=== PATIENT | female | born 1955 | race Caucasian/White ===

== ENCOUNTER 2017-11-29 03:32 | Observation (INO) ==
[2017-11-29 04:39] LABS: Basophils % 0.4 %; Eosinophils # 0.2 K/mcL (0.0-0.6); Eosinophils % 2.8 %; Hematocrit 38.8 % (35.3-44.9); Immature Granulocytes % 0.2 % (0-4); Lymphocytes # 1.9 K/mcL (0.6-4.6); Lymphocytes % 35.7 %; Mean Corpuscular HGB Conc 33.5 g/dL (31.6-35.5); Mean Corpuscular Hemoglobin 29.8 pg (28.0-33.3); Mean Platelet Volume 10.7 fL (9.4-12.4); Monocytes # 0.5 K/mcL (0.0-1.3); Monocytes % 8.7 %; Neutrophils # 2.8 K/mcL (1.6-8.9); Platelet Count 196 K/mcL (140-400); Red Blood Count 4.36 M/mcL (3.82-4.97); Red Cell Distribution Width 12.5 % (11.5-14.5); Segmented Neutrophils % 52.2 %
[2017-11-29 04:45] LABS: INR 1.1; Prothrombin Time 11.6 Seconds (9.4-12.1)
[2017-11-29 04:59] LABS: Alanine Aminotransferase 17 Units/L (7-52); Albumin 4.2 g/dL (3.5-5.7); Albumin/Globulin Ratio 1.8 (1.1-2.2); Alkaline Phosphatase 57 Units/L (34-104); Aspartate Amino Transferase 18 Units/L (13-39); BUN/Creatinine Ratio 15 (6-26); Bilirubin,Total 0.5 mg/dL (0.3-1.0); Blood Urea Nitrogen 15 mg/dL (8-23); Calcium 8.9 mg/dL (8.6-10.3); Carbon Dioxide 30 mEq/L (23-29); Chloride 102 mEq/L (98-107); Globulin 2.3 g/dL (2.4-3.5); Glucose 103 mg/dL (70-105); Magnesium 1.8 mg/dL (1.6-2.6); Osmolality,Calculated 289 (280-300); Potassium 3.7 mEq/L (3.5-5.1); Sodium 139 mEq/L (136-145); Total Protein 6.5 g/dL (6.4-8.9); eGFR For African Americans > 60 (> 60); eGFR For Non-African Americans 57 (> 60)
--- NOTE | 2017-11-29 05:33 | Emergency Department Note ---
Disposition Clinical Impression: Syncope and collapse Chest pain Qualifiers: Chest pain type: unspecified Qualified Code(s): R07.9 - Chest pain, unspecified Disposition: Admitted As Inpatient Condition: Good General Adult HPI - General Chief complaint: ED Syncope Stated complaint: syncope Time Seen by Provider: 11/29/17 04:01 Source: patient, family Limitations: no limitations Nursing Notes Reviewed: Yes Vital Signs Reviewed: Yes - History of Present Illness HPI Narrative: Patient presents today for T emergency department for evaluation of chest pain and syncope. Patient states that she fell asleep early tonight. She woke up at 12:00 to take her medications that she had missed. Nose that she was having left-sided chest pain that she describes as a burning tightness. She states that nothing made it better or worse but it did go away as she tried to lay back down. She then woke up at 3:30 with nausea vomiting and generalized unwell feeling. She was walking to the bedroom where she had complete collapse. She passed out. Patient does not remember the incident. is at bedside. States he was there and it took a while for her to come to. He was afraid that she was . Patient has had mild confusion that has not been improving since this time. Upon my evaluation the patient is alert and oriented 3. Patient does have some mildly slow speech but does not have any other complaints at this time. Pain Scale: 4 - Related Data Home Medications Medication Instructions Recorded Confirmed Atorvastatin [Lipitor] 40 mg PO HS 06/14/16 11/29/17 Cetirizine HCl [Zyrtec] 10 mg PO DAILY 06/14/16 11/29/17 Gabapentin [Neurontin] 600 mg PO QAM 06/14/16 11/29/17 Hydrocodone/Acetaminophen [[place] 1 tab PO Q6H PRN 06/14/16 11/29/17 7.5-325 Tablet] Levothyroxine [Synthroid] 125 mcg PO DAILY 06/14/16 11/29/17 Melatonin 5 mg PO HS 06/14/16 11/29/17 Meloxicam 15 mg PO DAILY 06/14/16 11/29/17 Omeprazole [PriLOSEC] 20 mg PO BIDAC 06/14/16 11/29/17 Tizanidine HCl [Zanaflex] 4 mg PO Q4H PRN 06/14/16 11/29/17 Verapamil HCl [Verapamil ER] 120 mg PO AD PRN 06/14/16 11/29/17 Aspirin [Lo-Dose Aspirin EC] 81 mg PO QAM 11/29/17 11/29/17 Gabapentin [Neurontin] 1,200 mg PO HS 11/29/17 11/29/17 Previous Rx's Medication Instructions Recorded Amitriptyline [Elavil] 25 mg PO HS #30 tablet 11/30/17 Allergies Allergy/AdvReac Type Severity Reaction Status Date / Time mold Allergy Swelling Verified 08/25/17 15:42 of Lip/Tongue/Throat Sulfa (Sulfonamide Allergy Swelling Verified 08/25/17 15:42 Antibiotics) of Lip/Tongue/Throat lactase [From Dairy Aid] AdvReac Abdominal Verified 08/25/17 15:42 Pain prochlorperazine AdvReac Seizure Verified 08/25/17 15:42 [From Compazine] Review of Systems: CONSTITUTIONAL: No weight loss, fever, chills, weakness or fatigue. HEENT: Eyes: No visual changes. Ears, Nose, Throat: No hearing loss, difficulty talking or unable to swallow. SKIN: No rash or itching. CARDIOVASCULAR: Chest pain and syncope RESPIRATORY: No shortness of breath, cough or sputum. GASTROINTESTINAL: No anorexia, nausea, vomiting or diarrhea. No abdominal pain or blood. GENITOURINARY: No burning on urination or hematuria. NEUROLOGICAL: Syncope No headache, dizziness, paralysis, ataxia, numbness or tingling in the extremities. No change in bowel or bladder control. MUSCULOSKELETAL: No muscle pain, back pain, joint pain or stiffness. Past Medical History - Past Medical History Medical history: Reports: hyperlipidemia, hypertension, thyroid disease Surgical history: Reports: hysterectomy, thyroidectomy, other Psychiatric history: Reports: no psych history - Social History Smoking Status: Never smoker Smokeless Tobacco Status: No Alcohol use: Reports: none Drug use: Reports: none Physical Exam General appearance: NAD, conversant Eyes: anicteric sclerae, moist conjunctivae; PERRL HENT: Atraumatic; oropharynx clear with moist mucous membranes and no mucosal ulcerations Neck: Normal inspection; Trachea midline; FROM, supple Lungs: CTA, with normal respiratory effort and no intercostal retractions CV: RRR, no MRGs Abdomen: Soft, non-tender; no rebound or gaurding Extremities: No peripheral edema or extremity lymphadenopathy Skin: Normal temperature; no rash, ulcers or lesions Psych: Appropriate mood and affect Neuro: alert and oriented to person, place and time - General Limitations: no limitations General appearance: alert, in no apparent distress Course - Reevaluation(s) Reevaluation #1: Imaging and blood work are unremarkable. The patient's EKG shows a incomplete right bundle branch block. No previous EKG. Patient will be admitted for chest pain and syncope. - Consultations Consultation #1: The patient was admitted to the hospitalist, Dr. Zayas, by the day physician, Dr. Gan. Sign out was given and all pertinent information was discussed. Vital Signs Temperature 97.6 F 11/29/17 03:32 Pulse Rate 53 11/29/17 03:32 Respiratory Rate 16 11/29/17 03:32 Blood Pressure 112/69 11/29/17 03:32 O2 Sat by Pulse Oximetry 98 11/29/17 03:32 Temperature 97.8 F 11/30/17 06:45 Pulse Rate 59 11/30/17 06:45 Respiratory Rate 16 11/30/17 06:45 Blood Pressure 122/76 11/30/17 06:45 O2 Sat by Pulse Oximetry 97 11/30/17 06:45 Oxygen Delivery Oxygen Delivery Room Air Medical Decision Making - Medical Records Medical records reviewed: Yes I reviewed the patient's medical records. - Lab Data Lab results reviewed: Yes I reviewed the patient's lab results. Result diagrams: 11/30/17 00:28 11/30/17 00:28 Lab Results 11/29/17 11/29/17 11/29/17 Range/Units 04:31 04:31 04:31 WBC 5.4 (4.3-11.1) K/mcL RBC 4.36 (3.82-4.97) M/mcL Hgb 13.0 (11.5-15.4) g/dL Hct 38.8 (35.3-44.9) % MCV 89.0 (83.0-100.0) fL MCH 29.8 (28.0-33.3) pg MCHC 33.5 (31.6-35.5) g/dL RDW 12.5 (11.5-14.5) % Plt Count 196 (140-400) K/mcL MPV 10.7 (9.4-12.4) fL Immature Gran % 0.2 (0-4) % Seg Neutrophils % 52.2 % Lymphocytes % 35.7 % Monocytes % 8.7 % Eosinophils % 2.8 % Basophils % 0.4 % Neutrophils # 2.8 (1.6-8.9) K/mcL Lymphocytes # 1.9 (0.6-4.6) K/mcL Monocytes # 0.5 (0.0-1.3) K/mcL Eosinophils # 0.2 (0.0-0.6) K/mcL Basophils # 0.0 (0.0-0.2) K/mcL PT 11.6 (9.4-12.1) Seconds INR 1.1 D-Dimer 297 (0-500) ng/mLFEU Sodium 139 (136-145) mEq/L Potassium 3.7 (3.5-5.1) mEq/L Chloride 102 (98-107) mEq/L Carbon Dioxide 30 H (23-29) mEq/L BUN 15 (8-23) mg/dL Creatinine 0.99 (0.60-1.20) mg/dL Est GFR ( Amer) > 60 (> 60) Est GFR (Non-Af Amer) 57 L (> 60) BUN/Creatinine Ratio 15 (6-26) Glucose 103 (70-105) mg/dL Calculated Osmolality 289 (280-300) Lactic Acid (0.5-2.2) mmol/L Calcium 8.9 (8.6-10.3) mg/dL Magnesium 1.8 (1.6-2.6) mg/dL Total Bilirubin 0.5 (0.3-1.0) mg/dL AST 18 (13-39) Units/L ALT 17 (7-52) Units/L Alkaline Phosphatase 57 (34-104) Units/L Troponin I (< 0.04) ng/mL Serum Total Protein 6.5 (6.4-8.9) g/dL Albumin 4.2 (3.5-5.7) g/dL Globulin 2.3 L (2.4-3.5) g/dL Albumin/Globulin Ratio 1.8 (1.1-2.2) 11/29/17 11/29/17 Range/Units 04:31 04:37 WBC (4.3-11.1) K/mcL RBC (3.82-4.97) M/mcL Hgb (11.5-15.4) g/dL Hct (35.3-44.9) % MCV (83.0-100.0) fL MCH (28.0-33.3) pg MCHC (31.6-35.5) g/dL RDW (11.5-14.5) % Plt Count (140-400) K/mcL MPV (9.4-12.4) fL Immature Gran % (0-4) % Seg Neutrophils % % Lymphocytes % % Monocytes % % Eosinophils % % Basophils % % Neutrophils # (1.6-8.9) K/mcL Lymphocytes # (0.6-4.6) K/mcL Monocytes # (0.0-1.3) K/mcL Eosinophils # (0.0-0.6) K/mcL Basophils # (0.0-0.2) K/mcL PT (9.4-12.1) Seconds INR D-Dimer (0-500) ng/mLFEU Sodium (136-145) mEq/L Potassium (3.5-5.1) mEq/L Chloride (98-107) mEq/L Carbon Dioxide (23-29) mEq/L BUN (8-23) mg/dL Creatinine (0.60-1.20) mg/dL Est GFR ( Amer) (> 60) Est GFR (Non-Af Amer) (> 60) BUN/Creatinine Ratio (6-26) Glucose (70-105) mg/dL Calculated Osmolality (280-300) Lactic Acid 0.9 (0.5-2.2) mmol/L Calcium (8.6-10.3) mg/dL Magnesium (1.6-2.6) mg/dL Total Bilirubin (0.3-1.0) mg/dL AST (13-39) Units/L ALT (7-52) Units/L Alkaline Phosphatase (34-104) Units/L Troponin I < 0.03 (< 0.04) ng/mL Serum Total Protein (6.4-8.9) g/dL Albumin (3.5-5.7) g/dL Globulin (2.4-3.5) g/dL Albumin/Globulin Ratio (1.1-2.2) - Radiology Data Radiology results reviewed: Yes I reviewed the patient's radiology results. - EKG Data EKG #1 EKG attestation: Yes I reviewed and interpreted this EKG. EKG results narrative: Patient's EKG shows sinus bradycardia with ventricular rate of 51. Incomplete right bundle branch block. No previous EKG for comparison. Patient has ST changes in the inferior leads. Attestation Statement - Attestation Attestation: I examined this patient and my medical decision-making was reviewed with the Resident Physician, Dr. Katz. I agree with the documented findings, disposition and treatment plan as described except to the extent set forth below. Pt is a 62 yo wf, presents with c/o CP and syncope. Pt reports waking at 0300 with nausea, not feeling well, and ambulated to BR when she had N/V and syncopal episode. Pt does not recall what happened, "thought she was ", described as pale, prolonged unresponsiveness, and ongoing confusion upon waking. On arrival to ED, pt awake alert and oriented x 3 without focal deficits. Pt denies any current sxs except overall fatigue. I agree with pt's PE findings as documented. VSS. EKG with incom RBBB, sinus bradycardia, no ischemic changes. CXR wnl. Labs wnl. Will admit for further eval, d/w hospitalist.
[2017-11-29] MEDS ORDERED: Verapamil ER (24 HR) 120 MG TABLET.ER PO PRN (12:51)
[2017-11-29] MEDS ORDERED: Naloxone 0.4 MG/ML INJ IVP PRN (12:54)
--- NOTE | 2017-11-29 13:00 | Internal Med History&Physical ---
<Wali Rosario - Last Filed: 11/29/17 13:03> Date of Encounter: 11/29/17 Time of Encounter: 12:58 Assessment and Plan (1) TIA (transient ischemic attack) Status: Acute I suspect the patient has had a TIA- She Presents with syncope, facial numbness and tingling, expressive and receptive aphasia which occurred early this morning around 0300. Symptoms have resolved as of the time of my assessment. She is alert and oriented 3, resting comfortably in bed, no focal neuro deficits noted to exam, NIH negative. CT of head unremarkable. Initial troponin negative. No prior history of CVA, TIA or cardiac disease. -MRI head/brain without contrast -BL Carotid doppler -TTE now -Start ASA -Continue Statin -CBC, BMP/CMP, Lipid panel in am -NIHSS now -Neuro checks q4hrs/per protocol -hold off on neurology consult for now; workup pending -Heparin 5000units SC BID -CARDIAC Qualifiers: Transient cerebral ischemia type: unspecified Qualified Code(s): G45.9 - Transient cerebral ischemic attack, unspecified (2) Chest pain Status: Acute She presents today with left-sided chest pain of unclear etiology, which began at 1200 this morning. She describes the chest pain as nonexertional, nonradiating and is a burning/tightness sensation. She has no prior history of ND, or CAD. No prior history of TIA or CVA. She does report that her father at a young age from massive heart attack unexpectedly. Patient currently has no complaints of chest pain, remains relatively stable and resting comfortably in bed. PLAN: - cardiac enzymes x 2 q 8 hr - EKG obtained and found to be sinus bradycardia with right bundle branch block - ASA - Continue atenolol - O2 by NC to keep SpO2 greater than 92% - CBCD, BMP in AM - Fasting lipids -Resume home medications - Heparin 5000 U SQ BID - 2D Echo -hold off on Cardiology consult for now -Consider nuclear stress both echocardiogram and troponin negative Qualifiers: Chest pain type: unspecified Qualified Code(s): R07.9 - Chest pain, unspecified (3) Syncope Status: Acute Patient is very sensitive syncopal event at 0300 this morning. Etiology unclear at this time. Plan is rule out cardiac versus neurogenic cause. Vital signs stable at this time. Patient is resting comfortably in bed without any distress. No focal neurological deficits present. See further planning above Qualifiers: Syncope type: unspecified Qualified Code(s): R55 - Syncope and collapse (4) HTN (hypertension) Status: Acute History of essential hypertension. He currently stable. Resume atenolol at home dose Qualifiers: Hypertension type: essential hypertension Qualified Code(s): I10 - Essential (primary) hypertension (5) DVT prophylaxis Status: Acute Heparin 5000 units subcutaneous twice a day Internal Medicine - H&P: HPI Chief complaint: syncope, tia symptoms Admitted From: Home Plans for Post Hospital Care: Home History of present illness: Ms. Peterson is a 62 year old female with a PMH of hyperlipidemia, hypertension, thyroid disease. She presents to emergency department today for evaluation of left-sided chest pain and syncopal event. Patient reports that last night at approximately 1200 she awoke with left-sided chest pain described as burning and nonradiating that was also accompanied with SOB. The patient states that she thought nothing of it simultaneously. She then awoke at 0300 with nausea, vomiting, generalized weakness, facial numbness and tingling. As reports that she was attempting to wash the bathroom and severed completely collapse. He was able to get her to come to after a few moments but she was experiencing expressive and receptive aphasia. He reports at that time her pulse was barely palpable. The confusion was persistent she was able to get to the vehicle to come to [facility] for further evaluation. Upon my evaluation the patient is alert and oriented 3, symptoms seem to have resolved, no focal neurological deficits. Workup in the emergency Department included CT of the head which is found to be negative, troponin was also found to be negative. She is being admitted for further workup and monitoring. Past Med Surg Social Fam HX - Past Medical History Medical history: GERD, hyperlipidemia, hypertension, thyroid disease Psychiatric history: no psych history - Past Surgical History Surgical History: hysterectomy, thyroidectomy, other - Social History Smoking Status: Never smoker Smokeless Tobacco Status: No Alcohol use: none Drug use: none - Family History Father Living Status: Age at : 51 Cause of : CHF Hx Family Cardiac Disorders: Yes Mother Living Status: Still Living Internal Medicine - H&P: Meds Atorvastatin [Lipitor] 40 mg PO HS 06/14/16 [History] Cetirizine HCl [Zyrtec] 10 mg PO DAILY 06/14/16 [History] Gabapentin [Neurontin] 600 mg PO QAM 06/14/16 [History] Hydrocodone/Acetaminophen [[place] 7.5-325 Tablet] 1 tab PO Q6H PRN 06/14/16 [ History] Levothyroxine [Synthroid] 125 mcg PO DAILY 06/14/16 [History] Melatonin 5 mg PO HS 06/14/16 [History] Meloxicam 15 mg PO DAILY 06/14/16 [History] Omeprazole [PriLOSEC] 20 mg PO BIDAC 06/14/16 [History] Tizanidine HCl [Zanaflex] 4 mg PO Q4H PRN 06/14/16 [History] Verapamil HCl [Verapamil ER] 120 mg PO AD PRN 06/14/16 [History] Aspirin [Lo-Dose Aspirin EC] 81 mg PO QAM 11/29/17 [History] Gabapentin [Neurontin] 1,200 mg PO HS 11/29/17 [History] Amitriptyline [Elavil] 25 mg PO HS #30 tablet 11/30/17 [Rx] 3 Allergy/AdvReac Type Severity Reaction Status Date / Time mold Allergy Swelling Verified 08/25/17 15:42 of Lip/Tongue/Throat Sulfa (Sulfonamide Allergy Swelling Verified 08/25/17 15:42 Antibiotics) of Lip/Tongue/Throat lactase [From Dairy Aid] AdvReac Abdominal Verified 08/25/17 15:42 Pain prochlorperazine AdvReac Seizure Verified 08/25/17 15:42 [From Compazine] All Systems PM: A 10-system review of systems was performed and is negative for pertinent findings except as documented above in the HPI. Review of systems: REVIEW OF SYSTEMS GENERAL: Negative for any nausea, vomiting, fevers, chills, or weight loss. NEUROLOGIC: Negative for any blurry vision, blind spots, double vision, facial asymmetry, dysphagia, dysarthria, hemiparesis, hemisensory deficits, or ataxia. Positive for dizziness and syncope as well as facial numbness, tingling and expressive and receptive aphasia HEENT: Negative for any head trauma, neck trauma, neck stiffness, photophobia, phonophobia, sinusitis, rhinitis. CARDIAC: Negative for any paroxysmal nocturnal dyspnea, or peripheral edema. Positive for left-sided nonradiating dull burning chest pain, syncope, mild dyspnea with chest pain PULMONARY: Negative for any wheezing, COPD, or TB exposure. Positive for dyspnea GASTROINTESTINAL: Negative for any abdominal pain, nausea, vomiting, bright red blood per rectum, melena. GENITOURINARY: Negative for any dysuria, hematuria, incontinence. INTEGUMENTARY: Negative for any rashes, cuts, insect bites. RHEUMATOLOGIC: Negative for any joint pains, photosensitive rashes, history of vasculitis or kidney problems. HEMATOLOGIC: Negative for any abnormal bruising, frequent infections or bleeding. - Constitutional Vitals: Temp Pulse Resp BP Pulse Ox 97.6 F 63 18 119/89 96 11/29/17 03:32 11/29/17 12:30 11/29/17 12:30 11/29/17 12:30 11/29/17 12:30 General appearance: Present: cooperative, A&O X 3, no acute distress, answers questions appropriately - Head Head exam: Present: atraumatic, normocephalic - Eye Eye exam: Present: PERRL, conjuntiva pink, sclera anicteric Pupils: Present: PERRL - Neck Neck exam general surgery: Present: supple, trachea midline. Absent: lymphadenopathy - Respiratory Respiratory exam: Present: CTAB. Absent: accessory muscle use, rales, rhonchi, wheezes - Cardiovascular Cardiovascular exam: Present: RRR, +S1, +S2. Absent: diastolic murmur, gallop, rubs, systolic murmur - GI/Abdominal GI/Abdominal exam: Present: normal bowel sounds, soft, no peritoneal signs. Absent: distended, tenderness - Extremities Exam Extremities exam: Present: warm, radial pulses palpable and symmetrical. Absent : calf tenderness, cyanotic, pedal edema - Neurological Exam Neurological exam: Present: CN II-XII intact, oriented X3, no focal deficits. Absent: pronater drift, facial droop, speech deficit - Expanded Neurological Exam Neurological exam expanded: Absent: expressive aphasia, receptive aphasia Patient oriented to: Present: person, place, time Speech: Present: fluid speech Cranial Nerves: EOM's intact PM: Normal, gag reflex PM: Normal, nystagmus PM: Normal, tongue deviation PM: Normal Cerebellar function: finger to nose: Normal, heel to gaston: Normal, Romberg: Normal Upper motor neuron: Babinski sign: Normal, Chris neglect: Normal, pronator drift : Normal, sensory extinction: Normal Neuro motor strength exam: LUE: 5, RUE: 5, LLE: 5, RLE: 5 Coma Scale Eye Opening: Spontaneous Coma Scale Motor Response: Obeys Commands Coma Scale Verbal Response: Oriented Coma Scale Total: 15 - Skin Skin exam: Present: dry, intact Internal Med - H&P Results - Labs CBC & Chem 7: 11/29/17 04:31 11/29/17 04:31 - EKG Data -: EKG Interpreted by Myself EKG shows normal: sinus rhythm Rate: bradycardia - EKG Data Prior EKG available for review: no EKG comments: 11/29/17 13:01 SB with RBBB - Diagnostic Studies Chest x-ray Status: image reviewed by me Additional comments: No acute pulmonary process CT scan - head Status: image reviewed by me Additional comments: No acute intracranial abnormalities <Chas Zayas P - Last Filed: 12/01/17 19:35> Date of Encounter: 12/01/17 Internal Medicine - H&P: HPI History of present illness: Ms. Peterson is a 62 year old female All Systems PM: A 10-system review of systems was performed and is negative for pertinent findings except as documented above in the HPI. - Constitutional Vitals: Temp Pulse Resp BP Pulse Ox 97.8 F 59 16 122/76 97 11/30/17 06:45 11/30/17 06:45 11/30/17 06:45 11/30/17 06:45 11/30/17 06:45 Internal Med - H&P Results - Labs CBC & Chem 7: 11/30/17 00:28 11/30/17 00:28 - Impressions ITS Impressions Brain MRI 11/29/17 12:50 IMPRESSION: 1. No acute infarct, intracranial hemorrhage, or significant mass effect. 2. Mild amount of chronic small vessel ischemic white matter disease. D/ / 11/29/2017 16:14:23 Zhang Mcghee MD / lgray Interpreting Provider: Zhang Mcghee MD Echocardiogram 11/29/17 12:50 Impressions: Normal right ventricular structure and function. Mild left ventricular diastolic dysfunction. LVEF 55%. Mild-moderate aortic regurgitation. No evidence of pulmonary hypertension. Left Ventricular Wall Motion: Rest Echo Findings All wall segments showed normal motion. Findings: Study Quality * Technically adequate exam. ECG Findings * Normal sinus rhythm. Right Ventricle * Normal right ventricular structure and function. Left Ventricle * Mild left ventricular diastolic dysfunction. * LVEF 55%. Left Atrium * Normal left atrial size. Right Atrium * Normal right atrial size. Interatrial Septum * No evidence of PFO by color Doppler. Aortic Valve * Mild-moderate aortic regurgitation. Tricuspid Valve * No evidence of pulmonary hypertension. Pulmonic Valve * Pulmonic valve not well visualized. Aorta * Normally sized aortic root. Pericardium * The pericardium appears normal. IVC * Normal IVC dimensions and inspiratory collapse. - Attending Attestation I examined this patient and my medical decision-making was reviewed with the Resident Physician/MEDICAL ASSISTANT PRN. I agree with the documented findings, disposition and treatment plan as described except to the extent set forth below.
[2017-11-29] MEDS: *HR* HYDROcodone/Acet 7.5/325 mg TABLET PO PRN ×2 (14:18→21:40)
[2017-11-29] MEDS: tiZANidine 4 MG TABLET PO PRN ×2 (14:18→21:51)
[2017-11-29] MEDS: *HR* Heparin 5,000 UNIT/ML VIAL SQ SCH (17:51)
[2017-11-29] MEDS ORDERED: Gabapentin 400 MG CAPSULE PO SCH (21:00)
[2017-11-30 00:37] LABS: Hematocrit 36.8 % (35.3-44.9); Hemoglobin 12.5 g/dL (11.5-15.4); Mean Corpuscular Volume 88.5 fL (83.0-100.0); Mean Platelet Volume 10.9 fL (9.4-12.4); Platelet Count 196 K/mcL (140-400); Red Blood Count 4.16 M/mcL (3.82-4.97); Red Cell Distribution Width 12.6 % (11.5-14.5)
[2017-11-30 00:50] LABS: Calcium 8.9 mg/dL (8.6-10.3); Chol/HDL Ratio 3.8 (0-4.9); Potassium 4.3 mEq/L (3.5-5.1)
[2017-11-30] MEDS: *HR* Heparin 5,000 UNIT/ML VIAL SQ SCH (05:17)
[2017-11-30 06:45] VITALS: BP 122/76
[2017-11-30] MEDS ORDERED: Gabapentin 300 MG CAPSULE PO SCH (09:00)
[2017-11-30] MEDS ORDERED: Aspirin Enteric Coated 81 MG Tablet PO SCH (09:00)
[2017-11-30] MEDS ORDERED: Loratadine 10 MG TABLET PO SCH (09:00)
[2017-11-30] MEDS ORDERED: Regadenoson 0.4 MG/5 ML SYRINGE IVP ONE (09:44)
[2017-11-30] MEDS: *HR* HYDROcodone/Acet 7.5/325 mg TABLET PO PRN (10:51)
[2017-11-30] MEDS: tiZANidine 4 MG TABLET PO PRN (10:51)
--- NOTE | 2017-11-30 11:37 | Internal Med Progress Note ---
Date of Encounter: 11/30/17 Time of Encounter: 10:30 - Constitutional Vitals: Temp Pulse Resp BP Pulse Ox 97.8 F 59 16 122/76 97 11/30/17 06:45 11/30/17 06:45 11/30/17 06:45 11/30/17 06:45 11/30/17 06:45 General appearance: Present: cooperative, A&O X 3, no acute distress, answers questions appropriately Internal Medicine: Result - Labs CBC & Chem 7: 11/30/17 00:28 11/30/17 00:28 Labs: Short CBC 11/30/17 Range/Units 00:28 WBC 6.3 (4.3-11.1) K/mcL Hgb 12.5 (11.5-15.4) g/dL Hct 36.8 (35.3-44.9) % Plt Count 196 (140-400) K/mcL BMP 11/30/17 00:28 Sodium 138 Potassium 4.3 Chloride 103 Carbon Dioxide 31 H BUN 15 Creatinine 1.19 Glucose 115 H Calcium 8.9 Cardiac Enzymes 11/29/17 11/29/17 11/30/17 Range/Units 14:03 20:18 00:28 Troponin I < 0.03 < 0.03 < 0.03 (< 0.04) ng/mL - ABG Interpretation ABG results: PT/INR, D-dimer PT 11.6 Seconds (9.4-12.1) 11/29/17 04:31 D-Dimer 297 ng/mLFEU (0-500) 11/29/17 04:31 - Impressions Impressions Brain MRI 11/29/17 12:50 IMPRESSION: 1. No acute infarct, intracranial hemorrhage, or significant mass effect. 2. Mild amount of chronic small vessel ischemic white matter disease. D/ / 11/29/2017 16:14:23 Zhang Mcghee MD / lgray Interpreting Provider: Zhang Mcghee MD Consult Discharge Plan - Plan Referrals: Joseph Posada MD [Primary Care Provider] -
--- NOTE | 2017-11-30 16:01 | Discharge Summary ---
Date of Encounter: 11/30/17 Time of Encounter: 12:30 - Discharge Diagnosis (1) Syncope Priority: Primary Status: Acute Comments: with witnessed syncopal episode. Patient reports waking up in the middle of the night and feeling dizzy with subsequent nausea and vomiting. This was followed by sensation of lightheadedness/dizziness infinitive she is given a pass out. at bedside and reports patient passed out with loss of consciousness up to 3-4 minutes. CXR [address]acute. Head CT, brain MRI unremarkable. Bilateral carotid dopplers with 40-59% R ICA stenosis. Nuclear stress test negative for ischemia or infarct. Telemetry review shows average HR 44. Home BB stopped. On Elavil at home which side effects include A-V conduction disturbance, heart block and syncope; decreased dose of Elavl. Recommend continuing tapering per PCP. Etiology unknown however concerned for possible arrhythmia with reported palpitations and bradycardia. Discharge home on holter monitor (ideally would like to do an event monitor however that is not available on the weekends and patient declined to stay inpatient). Advised to follow-up PCP on 12/02/2017. Qualifiers: Syncope type: unspecified Qualified Code(s): R55 - Syncope and collapse (2) Heart palpitations Priority: Primary Status: Acute Comments: per hx. Home BB stopped with bradycardia. Follow-up with PCP 12/02/17 (3) Chest pain Priority: Primary Status: Resolved Comments: presented with single, transient episode evening prior to arrival. Serial troponins negative, EKG without acute ST changes. TTE with EF %, mild diastolic dysfunction, mild to moderate aortic regurgitation. Nuclear stress test negative for ischemia or infarct. Chest pain resolved at time of discharge. No further cardiac testing warranted at this time. Qualifiers: Chest pain type: unspecified Qualified Code(s): R07.9 - Chest pain, unspecified - Discharge Medications Prescriptions: Amitriptyline [Elavil] 25 mg PO HS #30 tablet Home Medications: Atorvastatin [Lipitor] 40 mg PO HS 06/14/16 [History] Cetirizine HCl [Zyrtec] 10 mg PO DAILY 06/14/16 [History] Gabapentin [Neurontin] 600 mg PO QAM 06/14/16 [History] Hydrocodone/Acetaminophen [Kelly 7.5-325 Tablet] 1 tab PO Q6H PRN 06/14/16 [ History] Levothyroxine [Synthroid] 125 mcg PO DAILY 06/14/16 [History] Melatonin 5 mg PO HS 06/14/16 [History] Meloxicam 15 mg PO DAILY 06/14/16 [History] Omeprazole [PriLOSEC] 20 mg PO BIDAC 06/14/16 [History] Tizanidine HCl [Zanaflex] 4 mg PO Q4H PRN 06/14/16 [History] Verapamil HCl [Verapamil ER] 120 mg PO AD PRN 06/14/16 [History] Aspirin [Lo-Dose Aspirin EC] 81 mg PO QAM 11/29/17 [History] Gabapentin [Neurontin] 1,200 mg PO HS 11/29/17 [History] Amitriptyline [Elavil] 25 mg PO HS #30 tablet 11/30/17 [Rx] Allergies/Adverse Reactions: 3 Allergy/AdvReac Type Severity Reaction Status Date / Time mold Allergy Swelling Verified 08/25/17 15:42 of Lip/Tongue/Throat Sulfa (Sulfonamide Allergy Swelling Verified 08/25/17 15:42 Antibiotics) of Lip/Tongue/Throat lactase [From Dairy Aid] AdvReac Abdominal Verified 08/25/17 15:42 Pain prochlorperazine AdvReac Seizure Verified 08/25/17 15:42 [From Compazine] Procedures/tests Complete & Pending: Procedures Performed prior 72 hours Category Date Time Status NM alonzo perf SPECT multi [NM] Routine Exams 11/30/17 08:47 Taken MR head/brain wo con [MR] Routine MRI 11/29/17 12:50 Completed ECG 12 lead ECG [ECG] Routine Y 11/30/17 15:01 Ordered ECG holter monitor [ECG] Routine Y 11/30/17 13:36 Ordered ECG holter monitor [ECG] Routine Y 11/30/17 13:36 Stop Req EV carotid duplex imaging BI Routine Y 11/29/17 12:50 Completed EV echocardiogram Routine Y 11/29/17 12:50 Completed SP pharm nuclear stress Routine Y 11/30/17 08:47 Completed Date of admission: 11/29/17 07:54 Primary care physician: Joseph Posada MD Discharging clinician: Christelle Hernandez Anticipated date of discharge: 11/30/17 - Patient Status Disposition: Home, Self-Care Condition: Good Functional capacity at discharge: independent ambulation Overall status at discharge: patient is back to baseline - Discharge Instructions Instructions: Amitriptyline (By mouth), Palpitations (DC), Syncope (DC), Bradycardia (DC) Follow Up With: Anne-Marie Myers CNP [Advanced Practice Nurse] - (This appointment was web requested. Please call [facility] at the number provided if you do not hear anything with in 3 business days. ) Joseph Posada MD [Primary Care Provider] - (Please call Saturday for an appointment with in 7 days. ) Additional Instructions: Please call your primary care physician on 12/02/2017 for a follow-up appointment as soon as possible. Monitor blood pressure and heart rate while at home. If your systolic blood pressure (the top number) is greater than 150 and or your heart rate is above 100 then take 12.5 mg of atenolol. Otherwise do not take your atenolol and follow up with her primary care physician on 12/02/2017 Follow-up appointments: If there is not an appointment listed below, please call your physician and schedule a follow-up appointment. If you have congestive heart failure and your symptoms return, make an appointment with your physician. Medication List: Carry an up to date list of medications you are taking at all time. We have given you an updated medication list including any new medications that you have been prescribed. Please provide that list to your primary provider Symptoms: If your condition changes or you experience any of the following symptoms, notify your physician immediately: Unusual or worsening pain, fever, persistent nausea and vomiting, bleeding, increase in swelling (especially in your legs), sudden weight gain, extreme dizziness, chest pain, increased drainage or redness from a wound or incision. Go to the emergency department if you experience a problem with breathing. Weights: If you have a history of swelling or shortness of breath, weigh yourself daily and notify your physician if you have a weight gain of two or more pounds in one day or 5 or more pounds in a week. If you experience any of the warning signs for stroke: Sudden numbness or weakness of the face, arm or leg; especially on one side of the body, sudden confusion, trouble speaking or understanding, sudden trouble seeing in one or both eyes, sudden trouble walking, dizziness, loss of balance or coordination, sudden sever headache with no cause; Call 911 or go to the emergency room. Stroke is a medical emergency. Some risk factors for stroke: Age, cigarette smoking, diabetes, excessive alcohol consumption, family history , high blood pressure, overweight, physical inactivity, prior stroke, heart attack, diagnosis of carotid artery stenosis or other artery disease. If you smoke, STOP: Smoking or tobacco use significantly increases your risk of heart and lung disease. Your chance of disease greatly increases if you continue to smoke. For more information, call the [place] tobacco quit line for smoking cessation QUIT-NOW ( ) - Diet and Activity Activity: increase activity as tolerated Diet: advance to your usual diet Interval History: Seen and examined at bedside, Gloria's daily. Information obtained from chart review and patient report. Patient says she feels significantly improved and back to baseline. Would like to go home if possible. Discussed with patient and family at length regarding the concern for possible cardiac etiology for syncope. Patient will be discharged home on a 48-hour Holter monitor. Would like to do 2 week event monitor however this is unavailable on the weekends. Patient strongly encouraged to follow-up with PCP on Saturday. She has no complaints at discharge. She specifically denies chest pain, no shortness of breath, no lightheadedness or dizziness. Hospital course: See assessment and plan for hospital course - Time Spent with Patient Total time spent providing and/or coordinating discharge services: - Constitutional Vitals: Temp Pulse Resp BP Pulse Ox 97.8 F 59 16 122/76 97 11/30/17 06:45 11/30/17 06:45 11/30/17 06:45 11/30/17 06:45 11/30/17 06:45 General appearance: Present: cooperative, A&O X 3, no acute distress, answers questions appropriately - Head Head exam: Present: atraumatic, normocephalic - Eye Eye exam: Present: PERRL, conjuntiva pink, sclera anicteric Pupils: Present: PERRL - Neck Neck exam general surgery: Present: supple, trachea midline. Absent: lymphadenopathy - Respiratory Respiratory exam: Present: CTAB. Absent: accessory muscle use, rales, rhonchi, wheezes - Cardiovascular Cardiovascular exam: Present: bradycardia, irregular rhythm, +S1, +S2. Absent: diastolic murmur, gallop, rubs, systolic murmur - GI/Abdominal GI/Abdominal exam: Present: normal bowel sounds, soft, no peritoneal signs. Absent: distended, tenderness - Extremities Exam Extremities exam: Present: warm, radial pulses palpable and symmetrical. Absent : calf tenderness, cyanotic, pedal edema - Neurological Exam Neurological exam: Present: CN II-XII intact, oriented X3, no focal deficits. Absent: pronater drift, facial droop, speech deficit - Skin Skin exam: Present: dry, intact
--- NOTE | 2017-12-02 14:06 | Electrocardiograph Report ---
[place] [id number] Test Date: 2017-11-30 Pat Name: Dinah Peterson Department: 113 Room: 3B Gender: F [employer] Teacher: : 1955 Requested By: Christelle Hernandez Order Number: [id number] Reading MD: Oneyda Moser Measurements Intervals [place] Rate: 55 P: 44 SD: 172 QRS: -20 QRSD: 113 T: -6 QT: 418 QTc: 408 Interpretive Statements SINUS BRADYCARDIA INCOMPLETE RIGHT BUNDLE BRANCH BLOCK MODERATE VOLTAGE CRITERIA FOR LVH, CONSIDER NORMAL VARIANT Electronically Signed On 12-02-2017 14:05:20 EST by Oneyda Moser
--- NOTE | 2017-12-02 15:50 | Electrocardiograph Report ---
[address] [address] Test Date: 2017-11-29 Pat Name: Dinah Peterson Department: 104 Room: 3B Gender: F Packaging Machine Operator: ELODIA : 1955 Requested By: Heber Katz Order Number: [id number] Reading MD: Oneyda Moser Measurements Intervals [place] Rate: 51 P: 45 DC: 173 QRS: -8 QRSD: 116 T: -3 QT: 461 QTc: 437 Interpretive Statements SINUS BRADYCARDIA INCOMPLETE RIGHT BUNDLE BRANCH BLOCK MODERATE VOLTAGE CRITERIA FOR LVH, CONSIDER NORMAL VARIANT Electronically Signed On 12-02-2017 15:49:18 EST by Oneyda Moser
== END 2017-11-30 16:00 | disposition home or self-care (01) ==
LOC: 2SOUTHHOLD 03:32 → EMEROO 03:32 → 2SOUTHHOLD 08:05 → 3BNU 13:18
PROVIDERS: ADMIT Internal Medicine; ATTEND Registered Nurse